=== PATIENT | male | born 1985 | race Caucasian/White ===

== ENCOUNTER 2019-03-19 20:09 | Inpatient (IN) ==
[2019-03-19 21:15] LABS: Basophils # (auto) 0.02 K/uL (0-0.2); Basophils % (auto) 0.2 %; Eosinophils # (auto) 0.11 K/uL (0-0.5); Eosinophils % (auto) 1.4 %; Hematocrit (blood only) 41.8 % (42-52); Hemoglobin 14.5 g/dL (14.0-18.0); Immature Granulocytes # (auto) 0.03 K/uL (0.00-0.02); Immature Granulocytes % (auto) 0.4 %; Lymphocytes # (auto) 2.79 K/uL (1.2-3.4); Lymphocytes % (auto) 34.6 %; Mean Corpuscular Hgb Conc 34.7 g/dL (32-36); Mean Corpuscular Volume 84.1 fL (80-100); Monocytes # (auto) 0.48 K/uL (0.11-0.59); Neutrophils # (auto) 4.63 K/uL (1.4-6.5); Neutrophils % (auto) 57.4 %; Platelet Count 288 K/uL (130-400); RDW Coefficient of Variation 12.9 % (11.5-14.5); RDW Standard Deviation 39.1 fL (36.4-46.3); Red Blood Count 4.97 M/uL (4.7-6.1); White Blood Count 8.06 K/uL (4.8-10.8)
[2019-03-19 21:17] LABS: Appearance Urine Clear (Clear); Bilirubin Urine Negative (Negative); Blood Urine Negative (Negative); Color Urine Yellow; Glucose Urine UA Negative (Negative); Ketones Urine Negative (Negative); Leukocyte Esterase Urine Negative (Negative); Nitrite Urine Negative (Negative); Protein Urine Negative (Negative); Urobilinogen Urine Negative (Negative); pH Urine 5.5 (4.5-7.5)
[2019-03-19 21:33] LABS: Acetaminophen < 2 ug/ml (10-30)
[2019-03-19 21:34] LABS: Albumin Level 3.7 gm/dl (3.4-5.0); BUN Creatinine Ratio 13.9 (10-20); Creatinine Clr Calc Pharmacy 127.3 ml/min; Est GFR (African American) 103.1; Potassium 4.1 mmol/L (3.5-5.1)
[2019-03-19 21:35] LABS: Amphetamines+Metham, Urine Pos (Neg); Barbiturates, Urine Neg (Neg); Benzodiazepine, Urine Neg (Neg); Cocaine, Urine Neg (Neg); MDMA (Ecstacy), Urine Neg (Neg); Methadone, Urine Neg (Neg); Opiate, Urine Neg (Neg); Phencyclidine, Urine Neg (Neg)
[2019-03-19 21:44] LABS: Bilirubin,Total 0.2 mg/dl (0.2-1); Globulin 3.8 gm/dl (2.5-4.0); Total Protein 7.5 gm/dl (6.4-8.2)
--- NOTE | 2019-03-19 23:10 | Emergency Department Note ---
Entered by Nikky Valdovinos acting as a scribe for History of Present Illness General Chief complaint: Mental Health Evaluation Stated complaint: MENTAL HEALTH EVALUATION Time Seen by Provider: 03/19/19 20:44 Source: patient History of Present Illness Onset (ago): hour(s) (today) Location: head Pain Consistency: + other (episode) Maximum Pain Intensity: 7 Quality: + other (need for mental health evaluation) Associated symptoms: + other (positive seeing "shadowy figures"; positive hearing voices; positive thought of hurting himself; negative thoughts of hurting others; positive not sleeping; negative not eating) The patient is a 33 year old white male w/ PMHx of depression who presents to the ED w/ CC of a need for a mental health evaluation beginning today. The patient states that he was sent here after seeing Narda today. The patient states that he has been seeing and hearing things recently. The patient states that he has been seeing shadowy figures and hearing voices that "sound like they are underwater trying to talk". The patient states that the voices are not telling him to do anything. The patient states that he has had problems with this in the past, but states that this has worsened over the past several days. The patient states that he has not been taking his medications over the past week, and states that he is unsure why. The patient states that he has not slept for the past 3 days, and states that he has not been eating during this time. The patient states that he thought about hurting himself by walking into traffic. He denies thoughts of hurting others. Home Medications Home Medications Medication Instructions Recorded Confirmed Type alprazolam 0.5 mg PO TID 03/19/19 03/19/19 History bupropion HCl [Wellbutrin SR] 150 mg PO BID 03/19/19 03/19/19 History gabapentin 300 mg PO TID 03/19/19 03/19/19 History lisdexamfetamine [Vyvanse] 70 mg PO QAM 03/19/19 03/19/19 History lisinopril 20 mg PO DAILY 03/19/19 03/19/19 History mirtazapine 15 mg PO HS 03/19/19 03/19/19 History prazosin 1 mg PO HS 03/19/19 03/19/19 History quetiapine 100 mg PO HS 03/19/19 03/19/19 History quetiapine 200 mg PO HS 03/19/19 03/19/19 History Allergies Allergy/AdvReac Type Severity Reaction Status Date / Time No Known Allergies Allergy Verified 03/19/19 22:42 Past Med/Surg History Medical History Depression Social History Preferred Language: Lithuanian Communication Ability: Effective Toll Test Worker Required: No Beliefs That Will Affect Care: None Feels Safe at Home: No Smoking Status: Current every day smoker Tobacco Type: cigarettes Review of Systems See HPI for pertinent positives & negatives. and A total of 10 systems reviewed and were otherwise negative Physical Exam Vital Signs Vital Signs - 24 hr 03/19/19 20:19 03/19/19 23:34 Temperature 36.8 C Temperature Source Oral Sepsis Recent Fever Within 48 Hours No Sepsis New/Unexplained Change in Mental Status No Sepsis Action Taken by Nursing No Action Required Pulse Rate 123 H Pulse Rate [Right Finger] 90 Respiratory Rate 14 Respiratory Depth Normal Blood Pressure 142/99 H Blood Pressure [Left Arm] 135/88 Blood Pressure Mean 113 Blood Pressure Mean [Left Arm] 103 Pulse Oximetry 96 99 Oxygen Delivery Method Room Air Room Air GENERAL: Well appearing, well nourished, NAD, non-toxic. EYE EXAM: Normal conjunctiva. PERRL, no anisocoria and EOM's grossly intact w/o pain. OROPHARYNX: Moist mucus membranes. Grossly normal dentition. NECK: Supple, no nuchal rigidity, no adenopathy, non-tender. no signs of meningismus. LUNGS: Clear to auscultation. Normal chest wall mechanics. HEART: NSR, no MRG. ABDOMEN: Abdomen soft, non-tender, normo-active bowel sounds, no masses, no rebound or guarding. BACK: No CVA TTP. SKIN: No rashes and no bruising. UPPER EXTREMITIES: Upper extremities are grossly normal. LOWER EXTREMITIES: No pitting edema. No calf pain. NEURO EXAM: A&O x3, cranial nerves II-XII grossly intact, normal speech, moves all 4 extremities on command w/o issue. PSYCH: Positive AVH. Positive SI. No HI. Course 2112: The patient was evaluated in room A7, and a complete history and physical examination were performed. 0019: The patient was accepted to [address] [place] [address]. Administered Medications Alprazolam (Xanax) 0.5 mg PO Q8H PRN PRN Reason: Anxiety Stop: 04/19/19 10:36 Last Admin: 03/20/19 11:10 Dose: 0.5 mg Documented by: [id number] Bupropion HCl (Wellbutrin-Sr) 150 mg PO BID@0900,1400 [facility] Stop: 04/19/19 10:24 Last Admin: 03/20/19 14:11 Dose: 150 mg Documented by: [id number] Admin: 03/20/19 11:10 Dose: 150 mg Documented by: [id number] Gabapentin (Neurontin) 300 mg PO TID [facility] Stop: 04/19/19 13:59 Last Admin: 03/20/19 14:11 Dose: 300 mg Documented by: [id number] Admin: 03/20/19 11:15 Dose: 300 mg Documented by: [id number] Nicotine (Nicoderm Cq) 14 mg TD QAM [facility] Stop: 04/19/19 08:59 Last Admin: 03/20/19 11:13 Dose: 14 mg Documented by: [id number] Nicotine Polacrilex (Nicorette 2mg) 1 piece MT UD PRN PRN Reason: Nicotine Withdrawal Stop: 04/19/19 00:21 Last Admin: 03/20/19 10:33 Dose: 1 piece Documented by: [id number] Medical Decision Making Medical Records Attestation: I reviewed the patient's medical records. Home Medications Current Medication List: was personally reviewed by me Laboratory Data Attestation: I reviewed the patient's lab results. Result diagrams: 03/19/19 20:58 03/19/19 20:58 Lab Results 03/19/19 03/19/19 03/19/19 Range/Units 20:30 20:30 20:58 WBC 8.06 (4.8-10.8) K/uL RBC 4.97 (4.7-6.1) M/uL Hgb 14.5 (14.0-18.0) g/dL Hct 41.8 L (42-52) % MCV 84.1 (80-100) fL MCH 29.2 (25-34) pg MCHC 34.7 (32-36) g/dL RDW Std Deviation 39.1 (36.4-46.3) fL RDW Coeff of Topher 12.9 (11.5-14.5) % Plt Count 288 (130-400) K/uL MPV 10.0 (7.4-10.4) fL Immature Gran % (Auto) 0.4 % Neut % (Auto) 57.4 % Lymph % (Auto) 34.6 % [place] % (Auto) 6.0 % Eos % (Auto) 1.4 % Baso % (Auto) 0.2 % Immature Gran # (Auto) 0.03 H (0.00-0.02) K/uL Neut # (Auto) 4.63 (1.4-6.5) K/uL Lymph # (Auto) 2.79 (1.2-3.4) K/uL [place] # (Auto) 0.48 (0.11-0.59) K/uL Eos # (Auto) 0.11 (0-0.5) K/uL Baso # (Auto) 0.02 (0-0.2) K/uL Sodium (136-145) mmol/L Potassium (3.5-5.1) mmol/L Chloride (98-107) mmol/L Carbon Dioxide (21-32) mmol/L Anion Gap (3-11) BUN (7-18) mg/dl Creatinine (0.6-1.4) mg/dl Est Cr Clr Drug Dosing ml/min Est GFR ( Amer) Est GFR (Non-Af Amer) BUN/Creatinine Ratio (10-20) Glucose (70-99) mg/dl Calcium (8.5-10.1) mg/dl Total Bilirubin (0.2-1) mg/dl AST (15-37) U/L ALT (12-78) U/L Alkaline Phosphatase (45-117) U/L Total Protein (6.4-8.2) gm/dl Albumin (3.4-5.0) gm/dl Globulin (2.5-4.0) gm/dl Albumin/Globulin Ratio (0.9-2) TSH (0.300-4.500) uIu/ml Urine Color Yellow Urine Appearance Clear (Clear) Urine pH 5.5 (4.5-7.5) Ur Specific [place] 1.030 (1.000-1.030) Urine Protein Negative (Negative) Urine Glucose (UA) Negative (Negative) Urine Ketones Negative (Negative) Urine Blood Negative (Negative) Urine Nitrite Negative (Negative) Urine Bilirubin Negative (Negative) Urine Urobilinogen Negative (Negative) Ur Leukocyte Esterase Negative (Negative) Salicylates (2.8-20) mg/dl Urine Opiates Screen Neg (Neg) Ur Methadone, Qual Neg (Neg) Acetaminophen (10-30) ug/ml Urine Barbiturates Neg (Neg) Ur Phencyclidine (PCP) Neg (Neg) U Amphetamin/Meth Scrn Pos H (Neg) MDMA (Ecstasy) Screen Neg (Neg) U Benzodiazepines Scrn Neg (Neg) Ur Cocaine Metabolite Neg (Neg) U Marijuana (THC) Screen Neg (Neg) Ethyl Alcohol mg/dL (0-3) mg/dl 03/19/19 03/19/19 03/19/19 Range/Units 20:58 20:58 20:58 WBC (4.8-10.8) K/uL RBC (4.7-6.1) M/uL Hgb (14.0-18.0) g/dL Hct (42-52) % MCV (80-100) fL MCH (25-34) pg MCHC (32-36) g/dL RDW Std Deviation (36.4-46.3) fL RDW Coeff of Topher (11.5-14.5) % Plt Count (130-400) K/uL MPV (7.4-10.4) fL Immature Gran % (Auto) % Neut % (Auto) % Lymph % (Auto) % [place] % (Auto) % Eos % (Auto) % Baso % (Auto) % Immature Gran # (Auto) (0.00-0.02) K/uL Neut # (Auto) (1.4-6.5) K/uL Lymph # (Auto) (1.2-3.4) K/uL [place] # (Auto) (0.11-0.59) K/uL Eos # (Auto) (0-0.5) K/uL Baso # (Auto) (0-0.2) K/uL Sodium 143 (136-145) mmol/L Potassium 4.1 (3.5-5.1) mmol/L Chloride 109 H (98-107) mmol/L Carbon Dioxide 29 (21-32) mmol/L Anion Gap 5.0 (3-11) BUN 15 (7-18) mg/dl Creatinine 1.10 (0.6-1.4) mg/dl Est Cr Clr Drug Dosing 127.3 ml/min Est GFR ( Amer) 103.1 Est GFR (Non-Af Amer) 89.0 BUN/Creatinine Ratio 13.9 (10-20) Glucose 117 H (70-99) mg/dl Calcium 9.0 (8.5-10.1) mg/dl Total Bilirubin 0.2 (0.2-1) mg/dl AST 19 (15-37) U/L ALT 49 (12-78) U/L Alkaline Phosphatase 121 H (45-117) U/L Total Protein 7.5 (6.4-8.2) gm/dl Albumin 3.7 (3.4-5.0) gm/dl Globulin 3.8 (2.5-4.0) gm/dl Albumin/Globulin Ratio 1.0 (0.9-2) TSH 0.752 (0.300-4.500) uIu/ml Urine Color Urine Appearance (Clear) Urine pH (4.5-7.5) Ur Specific [place] (1.000-1.030) Urine Protein (Negative) Urine Glucose (UA) (Negative) Urine Ketones (Negative) Urine Blood (Negative) Urine Nitrite (Negative) Urine Bilirubin (Negative) Urine Urobilinogen (Negative) Ur Leukocyte Esterase (Negative) Salicylates 2.0 L (2.8-20) mg/dl Urine Opiates Screen (Neg) Ur Methadone, Qual (Neg) Acetaminophen < 2 L (10-30) ug/ml Urine Barbiturates (Neg) Ur Phencyclidine (PCP) (Neg) U Amphetamin/Meth Scrn (Neg) MDMA (Ecstasy) Screen (Neg) U Benzodiazepines Scrn (Neg) Ur Cocaine Metabolite (Neg) U Marijuana (THC) Screen (Neg) Ethyl Alcohol mg/dL < 3.0 (0-3) mg/dl Blood Pressure Blood Pressure Findings: Normal blood pressure MDM Narrative The patient is a 33 year old white male w/ PMHx of depression who presents to the ED w/ CC of a need for a mental health evaluation beginning today. Differential diagnosis: Etiologies such as mood disorder, infection, hypoglycemia, electrolyte abnormalities, cardiac sources, intracerebral event, toxicologic, neurologic, as well as others were entertained. Patient was seen and evaluated the bedside. The patient was complaining of SI with plan and associated auditory visual hallucinations. The patient has had worsening sleep and poor appetite and diet. The patient did a blood work completed which is unremarkable. The patient was deemed medically clear seen and evaluated by the psych shelter case manager. A referral was made upstairs and the patient was subsequently admitted to [address] [place] [address]. Impression & Plan Depression with suicidal ideation, Auditory hallucination, Hallucination, visual, Encounter for smoking cessation counseling Discharge Plan Visit Data *Final* Discharge Date/Time: 03/20/19 00:26 Chief Complaint: Mental Health Evaluation Stated Complaint: MENTAL HEALTH EVALUATION ED Provider: Stuart Lopez Discharge Problem: Depression with suicidal ideation, Auditory hallucination, Hallucination, visual, Encounter for smoking cessation counseling Patient Disposition: Admitted As Inpatient Discharge Instructions Interventions: ED Discharge Assessment Last Done: 03/20/19 00:26 The scribe's documentation has been prepared under my direction and personally reviewed by me in its entirety. I confirm that the note above accurately reflects all work, treatment, procedures, and medical decision making performed by me.
[2019-03-20] MEDS ORDERED: SODIUM CHLORIDE 0.65% NA SOLN 45 ML (OCEAN) PRN (00:22)
[2019-03-20] MEDS ORDERED: ALUMINUM/MAGNESIUM SUSP 30 ML UDC PO PRN (00:22)
[2019-03-20] MEDS ORDERED: MAGNESIUM HYDROXIDE SUSP 30 ML UDC PO PRN (00:22)
[2019-03-20] MEDS ORDERED: NICOTINE POLACRILEX 2 MG GUM MT PRN (00:22)
[2019-03-20] MEDS ORDERED: BISMUTH SUBSALICYLATE PER ML OMNICELL CHARGE PO PRN (00:22)
[2019-03-20] MEDS: ALPRAZolam 0.5 MG TABLET PO PRN ×2 (11:10→19:11)
[2019-03-20] MEDS: BuPROPion SR 150 MG TABCR PO SCH ×2 (11:10→14:11)
[2019-03-20] MEDS: NICOTINE 14 MG/24 HR PATCH TD SCH (11:13)
[2019-03-20] MEDS: GABAPENTIN 300 MG CAP PO SCH ×3 (11:15→21:31)
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
[2019-03-20] MEDS: ACETAMINOPHEN 325 MG TAB PO PRN (19:11)
[2019-03-20] MEDS: MIRTAZAPINE TAB 15 MG TAB PO SCH (21:31)
[2019-03-20] MEDS: QUETIAPINE FUMARATE 100 MG TABLET PO SCH (21:31)
[2019-03-20] MEDS: PRAZOSIN HCL 1 MG CAP PO SCH (21:31)
[2019-03-20] MEDS: QUETIAPINE FUMARATE 200 MG TAB PO SCH (21:31)
[2019-03-21] MEDS: ALPRAZolam 0.5 MG TABLET PO PRN (06:20)
[2019-03-21 08:39] LABS: Glucose Fasting 89 mg/dl (70-99)
[2019-03-21 08:46] LABS: Chol HDL Ratio 4; Cholesterol 139 mg/dl (0-200); HDL Cholesterol 33 mg/dl; LDL Cholesterol Calculated 44 mg/dl; Triglycerides 309 mg/dl (0-150); VLDL Cholesterol 62 mg/dl
[2019-03-21] MEDS: NICOTINE 14 MG/24 HR PATCH TD SCH (08:46)
[2019-03-21] MEDS: BuPROPion SR 150 MG TABCR PO SCH ×2 (08:47→13:21)
[2019-03-21] MEDS: GABAPENTIN 300 MG CAP PO SCH ×3 (08:47→21:33)
[2019-03-21] MEDS ORDERED: clonazePAM 0.5 MG TAB PO PRN (12:01)
--- NOTE | 2019-03-21 12:26 | Psychiatric Progress Note ---
Date of Service March 21, 2019 Impression / Recommendations Impression Patient was agreeable to some aspects of recommended medication adjustments. Patient offered much concern in regard to adjusting, and ultimately discontinuing, his benzodiazepines. He was also upset that he would not be receiving his Vyvanse during this admission, which is not even confirmed to be a current prescription. H&P from weekend covering psychiatrist was reviewed, which clearly documented discussion with patient regarding likelihood that benzodiazepines would be tapered/discontinued and that Vyvanse would not be ordered as it is not a confirmed prescription, it is contraindicated if hallucinations are suspected. Exam conversations were reviewed with the patient today continues to be focused on medications. Patient was agreeable to switching his alprazolam to longer acting clonazepam, with recommendation that the medication be tapered to discontinuation. He has not yet agreeable to this, but is willing to revisit during future encounters. Patient reviewed substance abuse history with this provider, and continues to state that he is not actively used substances since he was 30 years old. See note from mental health worker regarding phone call with mother. In summary: Patient continues to actively abuse prescriptions, methadone, and other unknown substances; stating 3 months ago the patient had overdosed and required 2 doses of naloxone to be revived. Initial attempt was made to coordinate care with prescribing psychiatrist, message was left requesting return phone call. At this time, the patient is denying suicidality; however, he remains at high risk of harm to self until able to show consistency of mood to ensure a safe discharge. Mood at this time remains highly labile. (1) Bipolar 1 disorder, depressed, moderate: The patient was admitted to the [facility] ([facility]) on q15 min checks (behavioral with suicide precautions) for safety. The patient will participate in group, recreational, and milieu therapies and will be offered additional individual and family sessions as clinically appropriate. Risks/benefits/alternatives reviewed re: restart of psychiatric medications (wellbutrin, neurontin, remeron, seroquel, nf prazosin). Fasting glucose and lipid profile in am given longer term risks associated with atypicals. No abnormal motor movements are noted. Patient denies that he has ever had side effects on restart of these before. Reviewed that Vyvanse will not be ordered as cannot confirm that it is a prescribed medication and generally contraindicated in patients with mcneill. Also reviewed that [facility] providers generally do not prescribe benzos on an ongoing basis to patients with a history of substance abuse/dependence. Will provide prn dosing low dose Xanax to prevent withdrawal and until primary team can reassess. 6/3 - Clonazepam 0.5mg TID ordered to replace alprazolam with clear explanation of recommendation to taper benzodiazepines to discontinuation - Continue mirtazapine, quetiapine, neurontin, and prazosin. Pt is requesting titration of bupropion - will ensure patient is taking this medication appropriately prior to determining if titration is necessary - Attempted [id number] coordination of care with outpatient psychiatrist, message left requesting return phone call Inventory Assets Strengths: intelligent, connection with provider Needs: housing Risk Factors Assessment Male: Yes : Yes Do You Have Access To A Gun?: No Mental Health Diagnoses: Yes Previous Attempt: Yes (unwitnessed) Family History of Suicide: No Previous Psychiatric Hospitalization: Yes Protective Factors Assessment : No Employed: No Supportive Family: No Interval History Identifying Information BERLIN KAUFFMAN is a 33-year-old M who is from [facility] but currently homeless, has a history of bipolar disorder, and was admitted on 03/20/19 00:22 on a 201 voluntary commitment for [facility]. Chief Complaint "I have been alright. I am not on all the meds I need to be on, but I think we are getting there." Review of Systems Notes Constitutional: denied Cardiovascular: denied Respiratory: denied Gastrointestinal: denied Neurological: reports difficulty concentrating Psychiatric: denies symptoms other than stated above Total of at least 10 systems reviewed, pertinent positives as above and in HPI. Sleep Information Total Hours of Sleep: 6.5 Sleep Comments: admitted this shift. Meal Information Percent Meal Consumed - Breakfast: 100 Percent Meal Consumed - Lunch: 100 Percent Meal Consumed - Dinner: 100 Subjective Subjective Patient was seen & assessed and interval progress reviewed with Treatment Team. Staff reports the patient has been adjusting to the unit. Conversations with mother suggest that patient's substance abuse history is more recent than he admits. Mother had reported to staff that patient had to be revived with naloxone x2 about 3 months prior to admission. Patient continues to ask staff about restarting Vyvanse. Patient was seen today to assess progress since admission. He states he is "all right", but continues to request medications he has not been receiving her on the unit. Patient continues to request for Vyvanse to be restarted, despite being told by admitting provider that it would be held during this admission. He is also requesting that his alprazolam be scheduled 3 times a day to ensure he is getting every dose. Patient shares with this provider a brief history leading to his admission. He states that he had been off medications for about a week, "but I continue to take the important ones, the alprazolam and the Vyvanse I never missed." Patient states that his depressive symptoms worsened, and he attempted to walk into traffic. Patient is now describing a "moment of clarity, but always follows me doing something stupid." Patient continues to admit to this provider that he has no active substance abuse concerns, and the positive methamphetamine in his urine is because he has been continuing Vyvanse at a lower dose than prescribed. It is unclear the indication for Vyvanse, as patient states he was started on medication to help with "socialization" and admits that he does not have a formal ADHD diagnosis, but "a lot of the symptoms." Reviewed current medication regimen with the patient, and made the recommendation to switch alprazolam to clonazepam, with plan to taper the medication to discontinuation. Patient verbalized is concerned regarding medication changes, as "I have worked with psychiatrist for years to get to these medications, and they work." Patient was ultimately agreeable to switching to clonazepam; however, is not yet agreeable to recommend taper. Patient denies suicidal thoughts since his attempt to walk into traffic, but continues to report low mood and anxiety. He denies other specific needs or concerns today. Physical Exam Psychiatric Orientation: alert, oriented x 3 and cooperative (Initially, and only superficially) Apperance: appropriately dressed (In zip up hoodie and gym shorts) and appropriately groomed Obese appearing male, casually dressed in hoodie and gym shorts. Hair is shaved on the sides, longer on top and pulled back in a ponytail. Level of hygiene appears adequate. Eye Contact: good eye contact Motor Behavior: steady gait and station and no abnormal motor movements Speech: normal rate/rhythm/volume of speech Affect: + irritable affect Mood: + depressed mood, + anxious mood and + irritable mood "I just still get very anxious" Thought Process: goal directed thought process and clear/coherent thought process Thought Content: + preoccupation (With medications) and reality based without delusions Suicidal Thoughts: denies suicidal thoughts Homicidal Thoughts: denies homicidal thoughts Hallucinations: no auditory hallucinations and no visual hallucinations Cognition: attention grossly intact and language grossly intact Estimated Intelligence: consistent with education level Insight: + limited insight Judgement: + limited judgement Vital Signs (Past 24 Hours) Last Vital Signs Temp 36.5 C 03/21/19 06:43 Pulse 105 H 03/21/19 06:45 Resp 18 03/21/19 06:43 BP 129/92 03/21/19 06:45 Pulse Ox 99 03/20/19 00:26 Results & Data Laboratory Results Laboratory Results - last 24 hr 03/21/19 07:55 Fasting Glucose 89 Triglycerides 309 H Cholesterol 139 LDL Cholesterol, Calc 44 VLDL Cholesterol, Calc 62 HDL Cholesterol 33 Cholesterol/HDL Ratio 4 Current Inpatient Medications Current Inpatient Medications: Current Inpatient Medications Acetaminophen (Tylenol) 650 mg PO Q4H PRN PRN Reason: Headache or Minor Fever Stop: 04/19/19 00:21 Last Admin: 03/20/19 19:11 Dose: 650 mg Documented by: Al Hydrox/Mg Hydrox/Simethicone (Maalox) 30 ml PO Q4H PRN PRN Reason: GI Upset Stop: 04/19/19 00:21 Bismuth Subsalicylate (Kaopectate) 15 ml PO PRN PRN PRN Reason: Loose Stool Stop: 04/19/19 00:21 Bupropion HCl (Wellbutrin-Sr) 150 mg PO BID@0900,1400 RADHA Stop: 04/19/19 10:24 Last Admin: 03/21/19 08:47 Dose: 150 mg Documented by: Clonazepam (Klonopin) 0.5 mg PO TID PRN PRN Reason: Anxiety Stop: 04/20/19 12:00 Gabapentin (Neurontin) 300 mg PO TID RADHA Stop: 04/19/19 13:59 Last Admin: 03/21/19 08:47 Dose: 300 mg Documented by: Hydroxyzine HCl (Vistaril) 50 mg PO HSZ PRN PRN Reason: Insomnia Stop: 04/19/19 00:21 Hydroxyzine HCl (Vistaril) 25 mg PO Q4H PRN PRN Reason: Anxiety Stop: 04/19/19 00:21 Last Admin: 03/20/19 17:44 Dose: 25 mg Documented by: Magnesium Hydroxide (Milk Of Magnesia) 30 ml PO DAILY PRN PRN Reason: Heartburn Stop: 04/19/19 00:21 Mirtazapine (Remeron) 15 mg PO [facility] Stop: 04/19/19 21:59 Last Admin: 03/20/19 21:31 Dose: 15 mg Documented by: Nicotine (Nicoderm Cq) 14 mg TD [facility] Stop: 04/19/19 08:59 Last Admin: 03/21/19 08:46 Dose: 14 mg Documented by: Nicotine Polacrilex (Nicorette 2mg) 1 piece MT PRN PRN Reason: Nicotine Withdrawal Stop: 04/19/19 00:21 Last Admin: 03/20/19 10:33 Dose: 1 piece Documented by: Prazosin HCl (Prazosin Hcl) 1 mg PO [facility] Stop: 04/19/19 21:59 Last Admin: 03/20/19 21:31 Dose: 1 mg Documented by: Quetiapine Fumarate (Seroquel) 100 mg PO [facility] Stop: 04/19/19 21:59 Last Admin: 03/20/19 21:31 Dose: 100 mg Documented by: Quetiapine Fumarate (Seroquel) 200 mg PO [facility] Stop: 04/19/19 21:59 Last Admin: 03/20/19 21:31 Dose: 200 mg Documented by: Sodium Chloride ([place] Nasal) 1 - 2 sprays NA PRN PRN PRN Reason: Nasal Dryness/Congestion Stop: 04/19/19 00:21 Post Discharge Appointments Primary Care Physician Name Of Family Doctor: Denies Therapist Name of Therapist: Denies Designated Broker Name of Designated Broker: Denies CPT Code CPT Code 47368
[2019-03-21] MEDS: clonazePAM 0.5 MG TAB PO SCH ×2 (14:43→21:33)
[2019-03-21] MEDS: ACETAMINOPHEN 325 MG TAB PO PRN (15:28)
[2019-03-21] MEDS: MIRTAZAPINE TAB 15 MG TAB PO SCH (21:33)
[2019-03-21] MEDS: QUETIAPINE FUMARATE 100 MG TABLET PO SCH (21:33)
[2019-03-21] MEDS: PRAZOSIN HCL 1 MG CAP PO SCH (21:33)
[2019-03-21] MEDS: QUETIAPINE FUMARATE 200 MG TAB PO SCH (21:33)
[2019-03-22] MEDS: GABAPENTIN 300 MG CAP PO SCH (08:21)
[2019-03-22] MEDS: clonazePAM 0.5 MG TAB PO SCH (08:21)
[2019-03-22] MEDS: BuPROPion SR 150 MG TABCR PO SCH (08:21)
[2019-03-22] MEDS: NICOTINE 14 MG/24 HR PATCH TD SCH (08:21)
--- NOTE | 2019-03-22 10:26 | Discharge Summary ---
Date of Service March 22, 2019 History of Present Illness History of hospitalization here in 2013 for SI in the context of a DUI charge. States that was living with mother until 1 month ago and clear he can't return there. He stayed in a homeless [facility] for 30 days and couldn't extend his stay. It's unclear how regularly he has been taking medications since [facility]- hospitalization 2 months ago (also for nonspecific mood symptoms and SI). The patient reports non-specific auditory and visual mcneill (like mumbling or a shadow out of the corner of his eye). He states that he goes in cycles were he doesn't sleep well and/or won't take his hs meds due to concerns for sleep paralysis which predates/is unrelated to the medications. When he is not well rested he misses daytime doses as well. History is a bit contradictory as he reports feeling positive/hopeful since getting SSI, he has a "back log" of checks and will be able to afford to stay in a hotel. When questioned about about additional vegetative symptoms like change in appetite, concentration, etc, essentially states varies due to his financial situation. The patient is very invested in treatment with Dr. Ryder and PDMP confirms last fill of Xanax for 90 pills approximately 2 weeks ago, following a few months of Klonopin rx. Initially patient said he hadn't taken meds for 1-2 weeks, then others only 3 days. It should be noted that no Vyvanse prescriptions were in PDMP since November yet he did test positive for amphetamines, said he's been taking his remaining supply 1-2 times a week. He has no formal psych testing, represented that Vyvanse was prescribed to help distract him from his mcneill. He denies changes in psychosocial history since last stay. It should be noted the he was discharged to [facility] at that time. Hasn't maintained regular employment for some time. He remains on probation but states unrelated to previous charges. He denies chronic ACOSTA or any growth/issues related to pineal tumor (has yearly exam). He denies any history of hypertension and states lisinopril was tried at [facility] for his anxiety. He states that polysubstance abuse was in the past and hasn't used for at least 2 years. Physical Exam Psychiatric Orientation: alert; + uncooperative Apperance: appropriately dressed, appropriately groomed and appeared stated age Eye Contact: + fair eye contact Motor Behavior: steady gait and station and no abnormal motor movements Speech: normal rate/rhythm/volume of speech Affect: + irritable affect Mood: + irritable mood ("where am I supposed to go?") Thought Process: goal directed thought process Thought Content: reality based without delusions Suicidal Thoughts: denies suicidal thoughts Homicidal Thoughts: denies homicidal thoughts Patient uncooperative with interview Cognition: attention grossly intact and language grossly intact Insight: + poor insight Judgement: + poor judgement Vital Signs (Past 24 Hours) Last Vital Signs Temp 36.6 C 03/22/19 06:38 Pulse 102 H 03/22/19 06:38 Resp 18 03/22/19 06:38 BP 132/93 03/22/19 06:38 Pulse Ox 99 03/20/19 00:26 Principal Diagnosis Bipolar disorder NOS (bipolar type I vs substance induced mood disorder vs personality disorder). Substance use disorder Psychiatric Data The patient was hospitalized on our unit for 3 days. On admission, he reported he had been off of most of his psychotropic medications (with the exception of benzodiazepines and stimulants), and that mood had worsened. He was resumed on his most recent effective regimen of bupropion, gabapentin, mirtazapine, quetiapine, and prazosin. He was continued on his home dose of alprazolam after the dose was confirmed via PDMP (filled #[address] Ryder 2 weeks prior to admission). His drug screen was positive for methamphetamine/amphetamine, and the patient reported that he was still taking Vyvanse, although review of the PDMP revealed that he had not filled the prescription for that medication in 4 months. He denied any history of ADHD, but stated the Vyvanse was prescribed for hallucinations when he was inpatient at [facility] in 01/2019. He initially reported sobriety from substances for at least 2 years, but collateral information did not support this, as his mother reported he has been an addict for 16 years and has exhausted his family. She recently came home to find him high on multiple prescription medications including methadone, and he overdosed about 3 months ago, was unresponsive and had to receive Narcan x2. It was also discovered that he had recently been to rehab, within the last month, but left after 1 day. Even when asked about these reports, the patient refused to disclose information about his substance abuse, stating he did not want to jeopardize losing access to controlled substances that were being prescribed by his outpatient psychiatrist. He refused to allow contact with his psychiatrist, and refused the recommendations for a family meeting with his mother. Patient tolerated his medications well, was performing ADLs independently, reported improved mood, and consistently denied suicidality. He continued to endorse v ague auditory and visual hallucinations of shadowy figures and distorted voices, but did not appear distracted and psychosis did not impair his functioning on the unit. He attended groups and participated, and was observed socializing with peers during free time. He asked for his alprazolam as frequently as he could get it, even when he appeared to be somnolent. He refused recommendations for substance abuse treatment, but agreed to referral for outpatient case management. Lemuel Aprius was contacted, and stated that the patient had been referred in November but refused services. She indicated willingness to assist him with exploring housing options. There was concern that patient was misusing his medications on the unit, as he was observed going to the bathroom immediately after receiving them, and was verbally abusive when staff asked to do a mouth check. He was irritable and verbally aggressive with staff again on the morning of discharge. Day of Discharge Assessment Patient's progress reviewed with nursing and social work; staff report his disability case manager Kassandra will meet with him today and assisting with housing options. He was compliant with mouth checks last evening after concerns were raised for misuse of prescription medications. He reported mood was an 8 out of 10, and that he was feeling happy. On my assessment, the patient states he is "good," but is upset because "I don't know what is happening with me." He clarifies that he does not know where he will stay after discharge. He agrees that his mood has improved significantly since admission and that he is no longer experiencing suicidal thoughts, but says he wants to know where the hospital thinks he should go. Reviewed that he will be meeting with his outpatient disability case manager to further discuss these. Also reviewed the recommendations specified when he signed in for voluntary treatment, including allowing communication with his current outpatient psychiatrist which she is refusing, if family meeting with his mother which she is refusing, and the recommendations to taper off of benzodiazepines, which he is voicing opposition to. Further, he is asking for additional controlled substances which are not indicated, and has not been forthcoming regarding his recent substance use. Reviewed these concerns with him, and the recommendations for discharge if he is not willing to engage in treatment. He then terminated the interview and left the office. Transition of Care Transition Of Care Record: was reviewed with the patient Advance Directives Advance Directives Information Provided: Yes Advance Directives: No Mental Health Advance Directive: No Advance Directives on File: No Living Will: No Power of Card Boxer: No Advance Directives Reason:: Declines as Mental Health Visit. Risk Factors Assessment Risk factors were mitigated by admission to the inpatient unit, resuming psychotropic medications to target mood and anxiety, recommendations to taper off controlled substances given ongoing substance abuse, psychoeducation about his diagnoses and the recommended treatment, requesting an ALEM to get outpatient records and coordinate care with his psychiatrist which he refused, recommendations for a family meeting with his mother which he refused, recommendations for substance abuse treatment which he refused, involving him in groups and therapy, working on healthy coping skills, and referring him for an increased level of outpatient care (disability case manager). The patient has reported improved mood and has been denying suicidal thoughts, has not been violent or engaged in self-harm since admission, is performing ADLs independently, eating and sleeping well, and taking medications. He indicates willingness to follow up with his outpatient psychiatrist. He is no longer at imminent risk of harm to himself, and is he is unwilling to participate in voluntary treatment, will be discharged to outpatient care. He does remain at increased risk for harm to both himself and others compared to the general population due to his sex, race, age, substance abuse, previous mental health diagnoses, history of previous hospitalization and suicide attempt, and lack of protective factors. His remaining risk factors are not likely to be mitigated by continued inpatient treatment given his unwillingness to be forthcoming with information and engage fully in treatment. Male: Yes : Yes Do You Have Access To A Gun?: No Health Problems: No Mental Health Diagnoses: Yes Substance Use Disorders: Yes Previous Attempt: Yes (unwitnessed) Family History of Suicide: No Previous Psychiatric Hospitalization: Yes Hopelessness: No Smoker: Yes Protective Factors Assessment Oriental [employer] Beliefs: No : No Responsible for Young Children: No Employed: No Stable Relationships: No Supportive Family: No Good Rapport with Provider: Yes Tobacco Cessation at Discharge Tobacco Cessation Medication Prescribed at Discharge: Offered & Pt Refused Total Time Total Time Spent: Greater Than 30 Minutes Total Time Includes: Examination of the patient, Discharge Planning, Medication Reconciliation and Communication with other providers Discharge Data Lab Results 03/19/19 03/19/19 03/19/19 20:30 20:30 20:58 WBC 8.06 RBC 4.97 Hgb 14.5 Hct 41.8 L MCV 84.1 MCH 29.2 MCHC 34.7 RDW Std Deviation 39.1 RDW Coeff of Topher 12.9 Plt Count 288 MPV 10.0 Immature Gran % (Auto) 0.4 Neut % (Auto) 57.4 Lymph % (Auto) 34.6 [place] % (Auto) 6.0 Eos % (Auto) 1.4 Baso % (Auto) 0.2 Immature Gran # (Auto) 0.03 H Neut # (Auto) 4.63 Lymph # (Auto) 2.79 [place] # (Auto) 0.48 Eos # (Auto) 0.11 Baso # (Auto) 0.02 Sodium Potassium Chloride Carbon Dioxide Anion Gap BUN Creatinine Est Cr Clr Drug Dosing Est GFR ( Amer) Est GFR (Non-Af Amer) BUN/Creatinine Ratio Glucose Fasting Glucose Calcium Total Bilirubin AST ALT Alkaline Phosphatase Total Protein Albumin Globulin Albumin/Globulin Ratio Triglycerides Cholesterol LDL Cholesterol, Calc VLDL Cholesterol, Calc HDL Cholesterol Cholesterol/HDL Ratio TSH Urine Color Yellow Urine Appearance Clear Urine pH 5.5 Ur Specific Jenner 1.030 Urine Protein Negative Urine Glucose (UA) Negative Urine Ketones Negative Urine Blood Negative Urine Nitrite Negative Urine Bilirubin Negative Urine Urobilinogen Negative Ur Leukocyte Esterase Negative Nasal Screen MRSA (PCR) Salicylates Urine Opiates Screen Neg Ur Methadone, Qual Neg Acetaminophen Urine Barbiturates Neg Ur Phencyclidine (PCP) Neg U Amphetamin/Meth Scrn Pos H MDMA (Ecstasy) Screen Neg U Benzodiazepines Scrn Neg Ur Cocaine Metabolite Neg U Marijuana (THC) Screen Neg Ethyl Alcohol mg/dL 03/19/19 03/19/19 03/19/19 20:58 20:58 20:58 WBC RBC Hgb Hct MCV MCH MCHC RDW Std Deviation RDW Coeff of Topher Plt Count MPV Immature Gran % (Auto) Neut % (Auto) Lymph % (Auto) [place] % (Auto) Eos % (Auto) Baso % (Auto) Immature Gran # (Auto) Neut # (Auto) Lymph # (Auto) [place] # (Auto) Eos # (Auto) Baso # (Auto) Sodium 143 Potassium 4.1 Chloride 109 H Carbon Dioxide 29 Anion Gap 5.0 BUN 15 Creatinine 1.10 Est Cr Clr Drug Dosing 127.3 Est GFR ( Amer) 103.1 Est GFR (Non-Af Amer) 89.0 BUN/Creatinine Ratio 13.9 Glucose 117 H Fasting Glucose Calcium 9.0 Total Bilirubin 0.2 AST 19 ALT 49 Alkaline Phosphatase 121 H Total Protein 7.5 Albumin 3.7 Globulin 3.8 Albumin/Globulin Ratio 1.0 Triglycerides Cholesterol LDL Cholesterol, Calc VLDL Cholesterol, Calc HDL Cholesterol Cholesterol/HDL Ratio TSH 0.752 Urine Color Urine Appearance Urine pH Ur Specific Jenner Urine Protein Urine Glucose (UA) Urine Ketones Urine Blood Urine Nitrite Urine Bilirubin Urine Urobilinogen Ur Leukocyte Esterase Nasal Screen MRSA (PCR) Salicylates 2.0 L Urine Opiates Screen Ur Methadone, Qual Acetaminophen < 2 L Urine Barbiturates Ur Phencyclidine (PCP) U Amphetamin/Meth Scrn MDMA (Ecstasy) Screen U Benzodiazepines Scrn Ur Cocaine Metabolite U Marijuana (THC) Screen Ethyl Alcohol mg/dL < 3.0 03/20/19 03/21/19 01:03 07:55 WBC RBC Hgb Hct MCV MCH MCHC RDW Std Deviation RDW Coeff of Topher Plt Count MPV Immature Gran % (Auto) Neut % (Auto) Lymph % (Auto) [place] % (Auto) Eos % (Auto) Baso % (Auto) Immature Gran # (Auto) Neut # (Auto) Lymph # (Auto) [place] # (Auto) Eos # (Auto) Baso # (Auto) Sodium Potassium Chloride Carbon Dioxide Anion Gap BUN Creatinine Est Cr Clr Drug Dosing Est GFR ( Amer) Est GFR (Non-Af Amer) BUN/Creatinine Ratio Glucose Fasting Glucose 89 Calcium Total Bilirubin AST ALT Alkaline Phosphatase Total Protein Albumin Globulin Albumin/Globulin Ratio Triglycerides 309 H Cholesterol 139 LDL Cholesterol, Calc 44 VLDL Cholesterol, Calc 62 HDL Cholesterol 33 Cholesterol/HDL Ratio 4 TSH Urine Color Urine Appearance Urine pH Ur Specific Jenner Urine Protein Urine Glucose (UA) Urine Ketones Urine Blood Urine Nitrite Urine Bilirubin Urine Urobilinogen Ur Leukocyte Esterase Nasal Screen MRSA (PCR) Negative Salicylates Urine Opiates Screen Ur Methadone, Qual Acetaminophen Urine Barbiturates Ur Phencyclidine (PCP) U Amphetamin/Meth Scrn MDMA (Ecstasy) Screen U Benzodiazepines Scrn Ur Cocaine Metabolite U Marijuana (THC) Screen Ethyl Alcohol mg/dL Hospital Course (1) Bipolar 1 disorder, depressed, moderate: The patient was admitted to the [facility] ([facility]) on q15 min checks (behavioral with suicide precautions) for safety. The patient will participate in group, recreational, and milieu therapies and will be offered additional individual and family sessions as clinically appropriate. Risks/benefits/alternatives reviewed re: restart of psychiatric medications (wellbutrin, neurontin, remeron, seroquel, nf prazosin). Fasting glucose and lipid profile in am given longer term risks associated with atypicals. No abnormal motor movements are noted. Patient denies that he has ever had side effects on restart of these before. Reviewed that Vyvanse will not be ordered as cannot confirm that it is a prescribed medication and generally contraindicated in patients with mcneill. Also reviewed that [facility] providers generally do not prescribe benzos on an ongoing basis to patients with a history of substance abuse/dependence. Will provide prn dosing low dose Xanax to prevent withdrawal and until primary team can reassess. 6/3 - Clonazepam 0.5mg TID ordered to replace alprazolam with clear explanation of recommendation to taper benzodiazepines to discontinuation - Continue mirtazapine, quetiapine, neurontin, and prazosin. Pt is requesting titration of bupropion - will ensure patient is taking this medication appropriately prior to determining if titration is necessary - Attempted [id number] coordination of care with outpatient psychiatrist, message left requesting return phone call Post Discharge Appointments Primary Care Physician Name Of Family Doctor: Denies Therapist Name of Therapist: Denies Tire Servicer Name of Tire Servicer: Denies Smoking Cessation Counseling Tobacco Cessation Medication Prescribed at Discharge: Offered & Pt Refused Discharge Plan Discharge Items Patient Disposition: Home - Self-Care Reason For Visit: DEPRESSIVE DISORDER Discharge Diagnosis: Bipolar disorder by history Discharge Goals: Improve disease control, Learn about illness, Specific goals and Therapeutic intervention Activity: Per 'Additional Instructions' section Non-emergency contact: Psychiatrist and Hand Spring Repairer Helper Call non-emergency contact if: you have any medication questions and your symptoms worsen Follow-up/Referrals: PCP,NO [Primary Care Provider] - Diet: Regular Addtl Provider Instructions: SPECIAL CARE INSTRUCTIONS: 1. Follow through with your scheduled aftercare appointments. If unable to keep an appointment, please call to reschedule. - You refused to sign a release to allow communication with your outpatient clinicians, including your psychiatrist. - We recommended a family meeting which you declined. - Taper off of benzodiazepines was recommended. 2. Take your medication only as prescribed. Medication should not be changed or stopped without the approval of your doctor. In the event of worsening symptoms or concerns about side effects, contact your doctor immediately. 3. Utilize new healthy coping skills, anger management skills, and stress management skills learned during your hospitalization. Journal feelings and process them with a support person. Identify stressors or situations that may result in relapse, deterioration or inappropriate behaviors and develop a plan to deal with those issues. 4. If your coping skills are ineffective and you are in crisis, contact your outpatient providers for direction. If unable to reach your providers, please call the CAN HELP LINE AT or go to the closest Emergency Room. 5. Avoid alcohol, controlled substances, and recreational drugs. We recommended substance abuse treatment, which you declined. 6. You have been provided with the Mental Health Advance Directives Pamphlet for your review. AFTERCARE APPOINTMENTS: * Please call your insurance company prior to your scheduled appointment to confirm your aftercare providers are covered. Take your insurance information to your appointments. WHO TO CALL AND WHEN: Medical Emergencies: For questions or emergencies related to your hospital stay, please contact the Inpatient Behavioral Health Unit at [phone]. A feather stitcher is on-call 11/05 for the Behavioral Health Unit for emergencies At any time you feel your situation is an emergency, you may also call 911 immediately. Your Doctors Instructions noted above were prepared by provider Ana Nicole MD. Prescriptions: Continued bupropion HCl [Wellbutrin SR] 150 mg tablet sustained-release 12 hr 150 mg PO BID RF: 0 prazosin 1 mg capsule 1 mg PO HS RF: 0 lisinopril 20 mg tablet 20 mg PO DAILY RF: 0 quetiapine 200 mg tablet 200 mg PO HS RF: 0 quetiapine 100 mg tablet 100 mg PO HS RF: 0 alprazolam 0.5 mg tablet 0.5 mg PO TID RF: 0 gabapentin 300 mg capsule 300 mg PO TID RF: 0 mirtazapine 15 mg tablet 15 mg PO HS RF: 0 Stand-Alone Forms: [facility] Discharge Orders: Discharge Order (Routine); Ordered 03/22/19 Ordered By: Ana Nicole Admission Data Admit Date/Time: 03/20/19 00:22 Attending Provider: Areli Ochoa Admit Provider: Areli Ochoa Primary Care Provider: PCP,NO Service: Psychiatry Other Pending Studies at Discharge: Yes (Drug screen confirmatory positive)
[2019-03-23 15:29] LABS: Amphetamine Urine, Confirm 3250 NG/ML (CUTOFF=250)
== END 2019-03-22 11:33 | disposition home or self-care (01) | DRG 885 ==
LOC: ED 20:09 → 3S 03-20 00:22